=== PATIENT | female | born 1965 | race Two or more races ===

== ENCOUNTER 2018-08-20 05:00 | Day surgery (SDC) | payer OTHER ==
[~2018-08-20 05:00] MED LIST: BACLOFEN20 MG PO; CLONAZEPAM1 MG; EFFEXOR XR150 MG; GABAPENTIN PO; LOSARTAN POTASS25 MG; LOVAZA1 GM; NEURONTIN600 MG; RESTORIL30 M1; WELCHOL625 MG
[2018-08-20] MEDS ORDERED: ULTRACET PO (11:35)
[2018-08-20] MEDS ORDERED: MACROBID 100 M100 MG PO (11:35)
== END 2018-08-20 15:26 | disposition home or self-care (01) ==
LOC: CIR.AMB 05:00
DX: N39.3 Stress incontinence (female) (male) (principal); N94.19 Other specified dyspareunia
CPT/HCPCS: 57288; 13131; C1771